=== PATIENT | male | born 1965 | race Asian ===

== ENCOUNTER 2022-05-02 13:40 | Emergency (ER) | payer OTHER, SELFPAY ==
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
--- NOTE | ~2022-05-02 | XR_ITS ---
EXAMINATION: XR CHEST CLINICAL INFORMATION: Chest tightness. COMPARISON: Chest radiograph dated 03/27/2013. TECHNIQUE: 2 views of the chest were obtained. FINDINGS: The lungs are clear. The cardiomediastinal silhouette is normal in size. There is no pleural effusion or pneumothorax. No acute osseous abnormality. XR/XR chest 2V IMPRESSION: No acute cardiopulmonary findings.
[2022-05-02 14:59] VITALS: BP 226/122; PULSE 80; RESP 16; TEMP 36.4; O2SAT 97; BMI 23.7
--- NOTE | 2022-05-02 15:08 | ECG_ITS ---
Test Reason : HYPERTENSION Blood Pressure : / mmHG Vent. Rate : 074 BPM Atrial Rate : 074 BPM P-R Int : 166 ms QRS Dur : 112 ms QT Int : 376 ms P-R-T Axes : -11 -17 014 degrees QTc Int : 417 ms Normal sinus rhythm Minimal voltage criteria for LVH, may be normal variant ( Lovejoy product ) Borderline ECG No previous ECGs available Referred By: Generic ED Physician Electronically Signed By:HANK LARA MD
[2022-05-02 15:27] LABS: Hematocrit 43.8 % (42.0-52.0); Hemoglobin 14.3 g/dl (14.0-18.0); Mean Corpuscular HGB Conc 32.6 g/dl (31.0-36.0); Mean Corpuscular Hemoglobin 27.7 pg (27.0-33.0); Mean Corpuscular Volume 84.9 fL (80.0-98.0); Mean Platelet Volume 9.8 fL (9.4-12.4); Platelet Count 246 X10*3/uL (160-400); Red Blood Count 5.16 X10*6/uL (4.60-5.80); Red Cell Distribution Width 12.8 % (11.0-16.0); White Blood Count 7.5 X10*3/uL (4.8-10.8)
[2022-05-02 15:43] LABS: Anion Gap 17 (12-20); Blood Urea Nitrogen 23 mg/dL (9-16); Calcium 9.3 mg/dL (8.4-10.2); Carbon Dioxide 26 mmol/L (22-29); Chloride 102 mmol/L (96-108); Creatinine Clr Calc Pharmacy 80.1; Estimated Glomerular Filt Rate > 60; Glucose Random 95 mg/dL (60-115); Potassium 3.6 mmol/L (3.3-5.1); Sodium 141 mmol/L (135-145)
[2022-05-02 19:07] VITALS: BP 228/122; PULSE 72; RESP 18; TEMP 36.7; O2SAT 97
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
[2022-05-02 19:54] VITALS: BP 240/122; PULSE 76; RESP 18; O2SAT 99
[2022-05-02] MEDS: Labetalol HCL 100 MG/20 ML VIAL 10 MG IVPUSH ×2 (19:57→20:37)
[2022-05-02 20:35] VITALS: BP 193/100; PULSE 74; RESP 18; TEMP 36.7; O2SAT 97
[2022-05-02 21:17] VITALS: BP 170/95
== END 2022-05-02 23:11 | disposition home or self-care (01) ==
PROVIDERS: Nurse Practitioner Family; Emergency Provider Emergency Medicine; PCP Internal Medicine
DX: S16.1XXA Strain of muscle, fascia and tendon at neck level, initial encounter (principal); M54.2 Cervicalgia; R51.9 Headache, unspecified; R07.89 Other chest pain; I10 Essential (primary) hypertension; V43.52XA Car driver injured in collision with other type car in traffic accident, initial encounter; Y93.9 Activity, unspecified; Y92.410 Unspecified street and highway as the place of occurrence of the external cause; Y99.9 Unspecified external cause status; Z79.899 Other long term (current) drug therapy
CPT/HCPCS: 36415; 70450; 71046; 72125; 80048; 84484; 85027; 93005; 96374; 96376; 99284